=== PATIENT | female | born 1965 | race African-American/Black ===

== ENCOUNTER 2017-01-06 11:57 | Observation (INO) | payer OTHER ==
[2017-01-06] MEDS ORDERED: morphine CARPU-JECT 4 MG/1 ML DISP.SYRIN IVPUSH ONE ×2 (13:19→17:43)
[2017-01-06] MEDS ORDERED: ASPIRIN 81 MG CHEWABLE TABLETS PO ONE (13:21)
--- NOTE | 2017-01-06 13:23 | PDOC ---
History of Present Illness - General Chief Complaint: Chest Pain Stated Complaint: CHEST PAIN Time Seen by Provider: 01/06/17 12:18 History Source: Patient Exam Limitations: No Limitations - History of Present Illness Initial Comments: 01/06/17 13:52 Patient is a 51F with history of prior DVT and CHF complaining of chest pain. The pain is located just to the left of the sternum and has been going on for about a week. It's made worse by activity, palpation and inspiration. It's made better with rest. It's described as a sharp pain. It does not radiate anywhere. The pain is intermittent. She also states that she has a blood clot in her upper right leg for the past 4 weeks or so, but has not received any treatment for it. She also complains of shortness of breath and edema in her legs. She denies nausea, vomiting, fevers, and chills. She states that she thinks her CHF is due to cocaine and alcohol abuse. She also states she has not used for 8+ years Past History - Past Medical History Allergies/Adverse Reactions: Allergies Allergy/AdvReac Type Severity Reaction Status Date / Time Penicillins Allergy Unverified 01/06/17 14:47 HTN: Yes Other medical history: right leg dvt, morbid obesity, former drug abuser - Psycho/Social/Smoking Cessation Hx Anxiety: No Suicidal Ideation: No Smoking History: Never smoked Have you smoked in the past 12 months: No Information on smoking cessation initiated: No Hx Alcohol Use: No Drug/Substance Use Hx: No Substance Use Type: None Review of Systems - Review of Systems Constitutional: No: Chills, Fever, Weakness HEENTM: No: Blurred Vision Respiratory: Yes: Shortness of Breath Cardiac (ROS): Yes: Chest Pain, Edema ABD/GI: No: Nausea, Vomiting : No: Burning, Dysuria Musculoskeletal: Yes: Joint Pain, Muscle Pain Neurological: Yes: Headache. No: Weakness *Physical Exam - Vital Signs Last Vital Signs Temp Pulse Resp BP Pulse Ox 98.0 F 94 H 18 130/71 96 01/06/17 11:57 01/06/17 11:57 01/06/17 11:57 01/06/17 11:57 01/06/17 11:57 - Physical Exam Comments: 01/06/17 13:59 Gen: Obese, well nourished, no acute distress CV: RRR, no murmurs rubs or gallops Lungs: Normal work of breathing, clear to auscultation bilaterally Chest: Tender to palpation, equal and symmetric chest movement Abd: Soft, nontender, normal bowel sounds Ext: 1+ pulses in lower extremities, 2+ in upper extremities, trace edema bilaterally Neuro: Awake, alert, oriented, no focal neuro deficits, CN2-12 intact Heart Score/ECG Review - History History: Moderately suspicious - Electrocardiogram EKG: Non specific repolarization disturbance - Age Age: 45-65 - Risk Factors Risk Factors Heart Score: Yes Hx Hypercholesterolemia, Yes Hx Hypertension, Yes Hx Diabetes, Yes Smoking History, Yes Positive family hx of cardiac disease, Yes Hx Obesity Based on the list above the patient has:: >/=3 risk factors or Hx atherosclerotic disease - Troponin Troponin: </= normal limit - Score Heart Score - Total: 5 #1 ECG reviewed & interpreted by me at: 14:03 01/06/17 14:03 Sinus rhythm, normal rate, normal axis, no t-wave abnormalities. [id number] showing LVH ED Treatment Course - LABORATORY CBC & Chemistry Diagram: 01/06/17 13:50 01/06/17 13:50 - ADDITIONAL ORDERS Additional order review: Laboratory Results 01/06/17 01/06/17 13:50 13:50 INR 1.14 PTT (Actin FS) 36.2 H Sodium 139 Potassium 3.8 Chloride 97 L Carbon Dioxide 35 H Anion Gap 7 L BUN 13 Creatinine 0.8 Creat Clearance w eGFR > 60 Random Glucose 189 H Calcium 9.0 Phosphorus 2.8 Magnesium 2.0 Total Bilirubin 0.5 AST 13 L ALT 22 Alkaline Phosphatase 112 Creatine Kinase 99 Troponin I < 0.02 Total Protein 7.4 Albumin 3.6 01/06/17 13:50 RBC 4.77 MCV 83.8 MCHC 31.7 L RDW 16.2 H MPV 7.9 Neutrophils % 69.3 Lymphocytes % 22.5 Monocytes % 5.4 Eosinophils % 2.2 Basophils % 0.6 - RADIOLOGY Radiology Studies Ordered: Category Date Time Status CHEST CTA [CT] Stat CT Scan 01/06/17 14:46 Completed DUPLEX VASCUL US-1 LEG [US] Stat Ultrasound 01/06/17 13:51 Completed - Medications Given in the ED: ED Medications Discontinued Medications Generic Name Dose Route Start Last Admin Trade Name Freq PRN Reason Stop Dose Admin Aspirin 324 mg 01/06/17 13:21 01/06/17 14:47 Asa - PO 01/06/17 13:22 324 mg ONCE ONE Administration Morphine Sulfate 4 mg 01/06/17 13:19 01/06/17 14:47 Morphine Injection - IVPUSH 01/06/17 13:20 4 mg ONCE ONE Administration Medical Decision Making - Medical Decision Making 01/06/17 14:04 Patient is a 51F with history of DVT and CHF here today complaining of chest pain. Chest pain is atypical, but multiple risk factors and history of untreated DVT is concerning. Vital signs are normal and stable. Differential diagnosis includes, but is not limited to: ACS, unstable angina, CHF, PE. Labs, CXR, ECG, and CTA Chest ordered. 01/06/17 17:50 CXR shows no acute cardiopulmonary process. Lab work normal. DVT and CTA normal. Plan to admit for observation. 01/06/17 18:[address] Jennings to admit to tele obs. Cardiology brought on board via Dr Lino as well. *DC/Admit/Observation/Transfer Diagnosis at time of Disposition: Chest pain Qualifiers: Chest pain type: unspecified Qualified Code(s): R07.9 - Chest pain, unspecified - Discharge Dispostion Condition at time of disposition: Stable Admit: Yes Decision to Admit order Date/Time: Decision to Admit Order Category Date Time Status Decision to Admit to Hospital Routine Admission 01/06/17 18:18 Active - Transfer to Acute Care Facility Accepting Physician:: Michaela - Attestations Scribe Attestion: 01/06/17 18:18 I, Dr. Conner Jaimes, attest that this document has been prepared under my direction and personally reviewed by me in its entirety. I further attest, that it accurately reflects all work, treatment, procedures and medical decision -making performed by me.
--- NOTE | 2017-01-06 13:44 | PDOC ---
Attending Attestation - Resident Resident Name: Conner Jaimes - ED Attending Attestation I have performed the following: I have examined & evaluated the patient, The case was reviewed & discussed with the resident, I agree w/resident's findings & plan, Exceptions are as noted - HPI HPI: 01/06/17 14:05 51-year-old female with history of congestive heart failure, hypertension, hyperlipidemia presents to the emergency department for chest pain. The patient reports last several days of having midsternal chest sharp pain that is pleuritic and reproducible to palpation. Patient states that the pain is coming go. Has some shortness of breath with this. Patient was recently diagnosed with a right lower extremity DVT of unknown etiology but is not on anticoagulation. She is now complaining of chest pain. Denies fevers or chills. Denies nausea or vomiting. - Physicial Exam PE: 01/06/17 14:06 GENERAL: Awake, alert, and fully oriented, in no acute distress. HEAD: No signs of trauma EYES: PERRLA, EOMI, sclera anicteric, conjunctiva clear ENT: Auricles normal inspection, hearing grossly normal, nares patent, oropharynx clear without exudates. NECK: Normal ROM, supple, no lymphadenopathy, JVD, or masses LUNGS: Breath sounds equal, clear to auscultation bilaterally. No wheezes, and no crackles HEART: Regular rate and rhythm, normal S1 and S2, no murmurs, rubs or gallops. Reproducible midsternal chest pain ABDOMEN: Soft, nontender, normoactive bowel sounds. No guarding, no rebound. No masses EXTREMITIES: Normal range of motion, no edema. No clubbing or cyanosis. No cords, erythema, or tenderness NEUROLOGICAL: Cranial nerves II through XII grossly intact. Normal speech, normal gait SKIN: Warm, Dry, normal turgor, no rashes or lesions noted. - Medical Decision Making 01/06/17 14:07 Patient's pleuritic chest pain in the setting of history of DVT we'll need a workup for pulmonary embolism. She has history congestive heart failure hypertension, hyperlipidemia. The patient will need a rule out [place] workup despite having an atypical story. We'll need to perform troponins, chest x-ray and a CT chest angiogram. Consider admission to the hospital for further cardiac workup. <Sukh Smith - Last Filed: 01/06/17 14:05> - Medical Decision Making 01/06/17 18:12-- Dr. Sanchez paged via phone answering service. 01/06/17 18:15-- Dr. Lino hydrate control tender for Dr. Sanchez who responded the page and discussed the patient's case. <Christina Silverman - Last Filed: 01/06/17 18:18> Heart Score/ECG Review - History History: Moderately suspicious - Electrocardiogram EKG: Non specific repolarization disturbance - Age Age: 45-65 - Risk Factors Based on the list above the patient has:: >/=3 risk factors or Hx atherosclerotic disease #1 ECG reviewed & interpreted by me at: 12:20 01/06/17 13:44 NSR 91, LVH, no std/anitha, normal axis, normal intervals, left atrial enlargement , QTC 462 msec <Sukh Smith - Last Filed: 01/06/17 14:05>
[2017-01-06 14:07] LABS: BASOPHIL 0.6 % (0-2.0); EOSINOPHIL 2.2 % (0-4.5); MCH 26.5 pg (25.7-33.7); MCHC 31.7 g/dl (32.0-36.0); MEAN CELL VOLUME 83.8 fl (80-96); MEAN PLT VOLUME 7.9 fl (7.5-11.1); NEUTROPHILS 69.3 % (42.8-82.8); PLATELET COUNT 304 K/MM3 (134-434); RDW 16.2 % (11.6-15.6); WHITE BLOOD COUNT 9.4 K/mm3 (4.0-10.0)
[2017-01-06 14:22] LABS: ALBUMIN 3.6 g/dl (3.4-5.0); ANION GAP 7 (8-16); BILIRUBIN,TOTAL 0.5 mg/dL (0.2-1.0); CO2 35 mmol/L (21-32); CREATININE 0.8 mg/dL (0.55-1.02); GLUCOSE,RANDOM 189 mg/dL (74-106); PHOSPHOROUS 2.8 mg/dL (2.5-4.9); SGOT/AST 13 U/L (15-37); SGPT/ALT 22 U/L (12-78); TOT PROT 7.4 g/dl (6.4-8.2)
[2017-01-06 14:25] LABS: ALK PHOS 112 U/L (45-117); TROPONIN I < 0.02 ng/ml (0.00-0.05)
[2017-01-06 14:37] LABS: INR 1.14 (0.82-1.09); PROTHROMBIN TIME (PATIENT) 12.6 SEC (9.98-11.88)
[2017-01-06 14:39] LABS: ACTIVATED PTT 36.2 SECONDS (26.9-34.4)
[2017-01-06] MEDS ORDERED: morphine CARPU-JECT 4 MG/1 ML DISP.SYRIN ONE ×2 (14:41→18:24)
[2017-01-06] MEDS ORDERED: ASPIRIN 81 MG CHEWABLE TABLETS ONE (14:42)
[2017-01-06] MEDS ORDERED: ONDANSETRON 4 MG/2 ML VIAL IVPUSH ONE (17:44)
--- NOTE | 2017-01-06 20:33 | HP ---
Admitting History and Physical - Primary Care Physician PCP: Lucy Jennings - Admission Chief Complaint: chest pain History of Present Illness: 51-year-old female with history of congestive heart failure, hypertension, hyperlipidemia presents to the emergency department for chest pain. The patient reports last several days of having midsternal chest sharp pain that is pleuritic and reproducible to palpation. Patient states that the pain is coming go. Has some shortness of breath with this. Patient was recently diagnosed with a right lower extremity DVT of unknown etiology but is not on anticoagulation. She is now complaining of chest pain. will admit pt for work up and r/o pe and mi - Smoking History Smoking history: Never smoked Have you smoked in the past 12 months: No - Alcohol/Substance Use Hx Alcohol Use: No Home Medications - Allergies Allergies/Adverse Reactions: Allergies Allergy/AdvReac Type Severity Reaction Status Date / Time Penicillins Allergy Severe Itching, Verified 01/06/17 21:48 rash - Home Medications Home Medications: Ambulatory Orders Aspirin [ASA -] 81 mg PO DAILY 01/06/17 Carvedilol [Coreg -] 3.125 mg PO ONCE 01/06/17 Lisinopril [Prinivil] 20 mg PO DAILY 01/06/17 Simvastatin [Zocor -] 20 mg PO HS 01/06/17 Carvedilol [Coreg -] 6.25 mg PO BID tablet 01/07/17 Rivaroxaban [Xarelto -] 15 mg PO BID tablet 01/07/17 Physical Examination Vital Signs: Vital Signs Temperature 98.0 F 01/06/17 11:57 Pulse Rate 94 H 01/06/17 11:57 Respiratory Rate 18 01/06/17 11:57 Blood Pressure 130/71 01/06/17 11:57 O2 Sat by Pulse Oximetry (%) 96 01/06/17 11:57 Constitutional: Yes: No Distress HENT: Yes: Atraumatic Neck: Yes: Supple Cardiovascular: Yes: Regular Rate and Rhythm Respiratory: Yes: CTA Bilaterally Gastrointestinal: Yes: Normal Bowel Sounds Extremities: Yes: WNL Neurological: Yes: Alert, Oriented Imaging - Results Chest X-ray: Report Reviewed Cat Scan: Report Reviewed Problem List - Problems (1) Chest pain Assessment/Plan: tele admit serial cardiac enzymes cardiology fu Code(s): R07.9 - CHEST PAIN, UNSPECIFIED Qualifiers: Chest pain type: unspecified Qualified Code(s): R07.9 - Chest pain, unspecified (2) Diabetes mellitus Assessment/Plan: fu bgms Code(s): E11.9 - TYPE 2 DIABETES MELLITUS WITHOUT COMPLICATIONS Qualifiers: Diabetes mellitus type: type 2 Diabetes mellitus complication status: without complication (3) HTN (hypertension) Assessment/Plan: on meds stable Code(s): I10 - ESSENTIAL (PRIMARY) HYPERTENSION Qualifiers: Hypertension type: essential hypertension Qualified Code(s): I10 - Essential (primary) hypertension Assessment/Plan Laboratory Tests 01/06/17 01/06/17 01/06/17 13:50 13:50 13:50 WBC 9.4 RBC 4.77 Hgb 12.7 Hct 40.0 MCV 83.8 MCH 26.5 MCHC 31.7 L RDW 16.2 H Plt Count 304 MPV 7.9 Neutrophils % 69.3 Lymphocytes % 22.5 Monocytes % 5.4 Eosinophils % 2.2 Basophils % 0.6 INR 1.14 PTT (Actin FS) 36.2 H Sodium 139 Potassium 3.8 Chloride 97 L Carbon Dioxide 35 H Anion Gap 7 L BUN 13 Creatinine 0.8 Creat Clearance w eGFR > 60 Random Glucose 189 H Calcium 9.0 Phosphorus 2.8 Magnesium 2.0 Total Bilirubin 0.5 AST 13 L ALT 22 Alkaline Phosphatase 112 Creatine Kinase 99 Troponin I < 0.02 Total Protein 7.[address] angio scan...no pe doppler romi.no dvt
[2017-01-06] MEDS ORDERED: ACETAMINOPHEN 325 MG TABLET (FP) PO PRN (20:35)
[2017-01-06] MEDS ORDERED: ATORVASTATIN CA 20 MG TABLET (FP) PO SCH (22:00)
[2017-01-06] MEDS ORDERED: oxyCODONE HCL 5 MG TABLET PO PRN (22:13)
[2017-01-06 22:31] LABS: TROPONIN I < 0.02 ng/ml (0.00-0.05)
[2017-01-06 23:03] VITALS: BMI 47.7
[2017-01-07] MEDS: oxyCODONE HCL 5 MG TABLET PO PRN ×4 (01:55→15:57)
[2017-01-07 08:15] LABS: TROPONIN I < 0.02 ng/ml (0.00-0.05)
[2017-01-07] MEDS ORDERED: ASPIRIN 81 MG CHEWABLE TABLETS PO SCH (10:00)
[2017-01-07] MEDS ORDERED: LISINOPRIL 20 MG TABLET (FP) PO SCH (10:00)
--- NOTE | 2017-01-07 12:04 | CON.CARD ---
Consult Consult Specialty:: Cardiology Referred by:: Dr. Jennings Reason for Consultation:: Cardiac evaluation - History of Present Illness Chief Complaint: Chest pain History of Present Illness: Patient is a 51 year old female with history of hypertension, hypercholesterolemia, right lower extremity DVT diagnosed in June at [facility] and was on Coumadin for 3 months (she ran out of meds and stopped herself), in addition, patient had a cardiac catheterization at [facility] in March of last year after having an abnormal stress testing. It appears that she was diagnosed with nonischemic dilated cardiomyopathy and was placed on LifeVest. She had LifeVest on until September and then it was sent back, but she did not follow up for ICD implant. She was seen at [facility] numerous times for right leg pain. She was seen by Dr. Jim Ramirez ([facility] firearms instructor) last week. Currently she is admitted with mid sternal chest discomfort without radiation. She denies shortness of breath or palpitations. She denies paroxysmal nocturnal dyspnea or orthopnea. She denies fever or chills. She denies headache or lightheadedness. She complains of right upper thigh pain. Vascular ultrasound revealed no evidence of DVT and chest CTA revealed no evidence of pulmonary embolism. Cardiology consultation was called for further evaluation. - History Source History Provided By: Patient, Medical Record Limitations to Obtaining History: No Limitations - Past Medical History Cardio/Vascular: Yes: CHF, HTN, Hyperlipdemia, Other (Dilated cardiomyopathy) - Past Surgical History Past Surgical History: Yes: Hysterectomy - Alcohol/Substance Use Hx Alcohol Use: Yes (previously) History of Substance Use: reports: Cocaine - Smoking History Smoking history: Former smoker Have you smoked in the past 12 months: No Home Medications - Allergies Allergies/Adverse Reactions: Allergies Allergy/AdvReac Type Severity Reaction Status Date / Time Penicillins Allergy Severe Itching, Verified 01/06/17 21:48 rash - Home Medications Home Medications: Ambulatory Orders Aspirin [ASA -] 81 mg PO DAILY 01/06/17 Carvedilol [Coreg -] 3.125 mg PO ONCE 01/06/17 Lisinopril [Prinivil] 20 mg PO DAILY 01/06/17 Simvastatin [Zocor -] 20 mg PO HS 01/06/17 Family Disease History - Family Disease History Family Disease History: CA: Father (HTN, prostate CA), Other: Father, Mother ( HTN) Review of Systems - Review of Systems Constitutional: denies: Chills, Fever Cardiovascular: reports: Chest Pain. denies: Palpitations, Shortness of Breath Respiratory: denies: Cough, Hemoptysis, Orthopnea, PND, SOB, SOB on Exertion Gastrointestinal: denies: Abdominal Pain, Constipation, Diarrhea, Melena, Nausea , Rectal Bleeding, Vomiting Musculoskeletal: reports: Extremity Pain Neurological: denies: Dizziness, Headache, Seizure, Syncope, Unsteady Gait, Weakness Vital Signs: Vital Signs Temperature 97.8 F 01/07/17 07:17 Pulse Rate 89 01/07/17 07:17 Respiratory Rate 18 01/07/17 07:17 Blood Pressure 127/74 01/07/17 07:17 O2 Sat by Pulse Oximetry (%) 97 01/06/17 21:15 Neck: Yes: Supple Respiratory: Yes: Diminished Gastrointestinal: Yes: Normal Bowel Sounds, Soft, Abdomen, Obese. No: Tenderness Cardiovascular: Yes: Regular Rate and Rhythm JVD: No Carotid Bruit: No PMI: Non-Displaced Heart Sounds: Yes: S1, S2. No: Gallop Murmur: No: Systolic Murmur Edema: No - Other Data Labs, Other Data: INR, PTT INR 1.14 (0.82-1.09) 01/06/17 13:50 Troponin, BNP 01/06/17 01/07/17 21:30 05:35 Troponin I < 0.02 < 0.02 Laboratory Results - last 24 hr 01/06/17 01/06/17 01/06/17 13:50 13:50 13:50 WBC 9.4 RBC 4.77 Hgb 12.7 Hct 40.0 MCV 83.8 MCH 26.5 MCHC 31.7 L RDW 16.2 H Plt Count 304 MPV 7.9 Neutrophils % 69.3 Lymphocytes % 22.5 Monocytes % 5.4 Eosinophils % 2.2 Basophils % 0.6 INR 1.14 PTT (Actin FS) 36.2 H Sodium 139 Potassium 3.8 Chloride 97 L Carbon Dioxide 35 H Anion Gap 7 L BUN 13 Creatinine 0.8 Creat Clearance w eGFR > 60 Random Glucose 189 H Calcium 9.0 Phosphorus 2.8 Magnesium 2.0 Total Bilirubin 0.5 AST 13 L ALT 22 Alkaline Phosphatase 112 Creatine Kinase 99 Troponin I < 0.02 Total Protein 7.4 Albumin 3.6 01/06/17 01/07/17 21:30 05:35 WBC RBC Hgb Hct MCV MCH MCHC RDW Plt Count MPV Neutrophils % Lymphocytes % Monocytes % Eosinophils % Basophils % INR PTT (Actin FS) Sodium Potassium Chloride Carbon Dioxide Anion Gap BUN Creatinine Creat Clearance w eGFR Random Glucose Calcium Phosphorus Magnesium Total Bilirubin AST ALT Alkaline Phosphatase Creatine Kinase 85 83 Troponin I < 0.02 < 0.02 Total Protein Albumin Normal sinus rhythm with LVH Echo: Pending Imaging - Results Chest X-ray: Report Reviewed Cat Scan: Report Reviewed (Chest CTA no pulmonary embolism) Ultrasound: Report Reviewed (No DVT) EKG: Report Reviewed Problem List - Problems (1) Chest pain Code(s): R07.9 - CHEST PAIN, UNSPECIFIED Qualifiers: Chest pain type: unspecified Qualified Code(s): R07.9 - Chest pain, unspecified (2) Nonischemic dilated cardiomyopathy Code(s): I42.9 - CARDIOMYOPATHY, UNSPECIFIED (3) HTN (hypertension) Code(s): I10 - ESSENTIAL (PRIMARY) HYPERTENSION Qualifiers: Hypertension type: essential hypertension Qualified Code(s): I10 - Essential (primary) hypertension (4) Hypercholesterolemia Code(s): E78.00 - PURE HYPERCHOLESTEROLEMIA, UNSPECIFIED (5) DVT (deep venous thrombosis) Code(s): I82.409 - ACUTE EMBOLISM AND THOMBOS UNSP DEEP VN UNSP LOWER EXTREMITY Qualifiers: DVT location: lower extremity Laterality: right (6) Hyperglycemia Code(s): R73.9 - HYPERGLYCEMIA, UNSPECIFIED Assessment/Plan 1. Chest pain syndrome with probable underlying non-ischemic dilated cardiomyopathy (previously was placed on LifeVest with assessment for ICD implant as primary prophylaxis) 2. Hypertension/hypertensive cardiovascular disease 3. Hypercholesterolemia 4. Previous history of substance abuse 5. Hyperglycemia suggests diabetes mellitus 6. History of right LE DVT 7. Exogenous obesity PLAN: 1. Serial cardiac enzymes are negative 2. Continue Carvedilol and Lisinopril and uptitrate 3. Continue ASA 4. Continue Statin and follow lipid panel 5. Consider Spironolactone if clinically feasible 6. Obtain cardiac catheterization report for review 7. Transthoracic echocardiography to assess LV and valvular function if not done recently (will check with Dr. Ramirez) 8. Further nuclear imaging to assess LVEF and if LVEF is less than 35%, she may need ICD for primary prophylaxis. 9. Check hemoglobin A1C and TSH 10. Obtain right LE ultrasound report from [facility] for review Further plans are to follow Gustavo Lino MD
[2017-01-07] MEDS ORDERED: CARVEDILOL 6.25 MG TABLET (FP) PO SCH (12:30)
[2017-01-07] MEDS ORDERED: RIVAROXABAN 15 MG TABLET PO SCH (12:45)
--- NOTE | 2017-01-07 16:08 | DS ---
Physical Examination Vital Signs: Vital Signs Temperature 97.8 F 01/07/17 14:00 Pulse Rate 96 H 01/07/17 14:00 Respiratory Rate 20 01/07/17 15:00 Blood Pressure 112/71 01/07/17 14:00 O2 Sat by Pulse Oximetry (%) 97 01/06/17 21:15 Constitutional: Yes: No Distress HENT: Yes: Atraumatic Neck: Yes: Supple Cardiovascular: Yes: Regular Rate and Rhythm Respiratory: Yes: CTA Bilaterally Gastrointestinal: Yes: Normal Bowel Sounds Extremities: Yes: WNL Edema: No Peripheral Pulses WNL: Yes Neurological: Yes: Alert, Oriented Discharge Summary Reason For Visit: CHEST PAIN Current Active Problems Chest pain (Acute) DVT (deep venous thrombosis) (Acute) Diabetes mellitus (Acute) HTN (hypertension) (Acute) Hypercholesterolemia (Acute) Hyperglycemia (Acute) Nonischemic dilated cardiomyopathy (Acute) Condition: Stable - Instructions Diet, Activity, Other Instructions: pt need to see her cardiology and pmd for xeralto and other prescriptions apparently she was on it at home ...see your doctor as soon as possible Referrals: Gustavo Lino MD [Staff Physician] - - Home Medications Comprehensive Discharge Medication List: Ambulatory Orders Aspirin [ASA -] 81 mg PO DAILY 01/06/17 Carvedilol [Coreg -] 3.125 mg PO ONCE 01/06/17 Lisinopril [Prinivil] 20 mg PO DAILY 01/06/17 Simvastatin [Zocor -] 20 mg PO HS 01/06/17 xeralto at home 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
[2017-01-07 19:23] VITALS: BP 107/53; PULSE 87; TEMP 98.8
--- NOTE | 2017-01-08 13:03 | EKG ---
Test Reason : Blood Pressure : / mmHG Vent. Rate : 091 BPM Atrial Rate : 091 BPM P-R Int : 160 ms QRS Dur : 086 ms QT Int : 376 ms P-R-T Axes : 054 -05 034 degrees QTc Int : 462 ms NORMAL SINUS RHYTHM POSSIBLE LEFT ATRIAL ENLARGEMENT LEFT VENTRICULAR HYPERTROPHY ABNORMAL ECG NO PREVIOUS ECGS AVAILABLE Confirmed by ANGELA LUGO MD ([id number]) on 01/08/2017 1:02:44 PM Referred By: Confirmed By:ANGELA LUGO MD
== END 2017-01-07 20:13 | disposition home or self-care (01) ==
LOC: JER 11:57 → JERBED 18:18 → J4W 19:35
PROVIDERS: ADMIT Internal Medicine; ATTEND Internal Medicine
PROC: 3E033NZ Introduction of Analgesics, Hypnotics, Sedatives into Peripheral Vein, Percutaneous Approach (ICD-10-PCS; principal; 2017-01-06)
PROC: 3E033GC Introduction of Other Therapeutic Substance into Peripheral Vein, Percutaneous Approach (ICD-10-PCS; 2017-01-06)
DX: R07.9 Chest pain, unspecified (principal); I10 Essential (primary) hypertension; I50.9 Heart failure, unspecified; I42.8 Other cardiomyopathies; I82.4Z1 Acute embolism and thrombosis of unspecified deep veins of right distal lower extremity; E11.65 Type 2 diabetes mellitus with hyperglycemia; E78.5 Hyperlipidemia, unspecified; E66.01 Morbid (severe) obesity due to excess calories; Z68.42 Body mass index [BMI] 45.0-49.9, adult; G47.33 Obstructive sleep apnea (adult) (pediatric); Z88.0 Allergy status to penicillin; Z87.891 Personal history of nicotine dependence; F19.21 Other psychoactive substance dependence, in remission; Z79.82 Long term (current) use of aspirin; Z79.01 Long term (current) use of anticoagulants
CPT/HCPCS: 36415; 71010-TC; 71275-TC; 80053; 82550; 83735; 84100; 84484; 85025; 85610; 85730; 93005; 93010; 93971-TC; 99285-25; G0378

== ENCOUNTER 2017-09-24 11:44 | Emergency (ER) | payer OTHER ==
[2017-09-24 12:48] VITALS: BMI 49.9
--- NOTE | 2017-09-24 13:00 | PDOC ---
History of Present Illness - General Chief Complaint: Pain, Acute Stated Complaint: FOOT PAIN Time Seen by Provider: 09/24/17 12:49 History Source: Patient Exam Limitations: No Limitations - History of Present Illness Initial Comments: 09/24/17 14:33 Pt. is a 52 y/o F with PMH of DVT currently on xaralto, CHF, who presents to the ED c/o increasing L lower leg pain and shortness of breath on exertion. Pt. states that the pain has been getting worse in her leg and that she has a DVT in her LLE. She took Motrin with little relief. Pt. also states that she gets short of breath with exertion and is unable to walk more than a couple of yards without getting short of breath. Denies fevers, chills, n/v/d, chest pain, palpitations, difficulty breathing at rest, leg numbness and weakness. Past History - Travel Traveled outside of the country in the last 30 days: No Close contact w/someone who was outside of country & ill: No - Past Medical History Allergies/Adverse Reactions: Allergies Allergy/AdvReac Type Severity Reaction Status Date / Time Penicillins Allergy Severe Itching, Verified 09/24/17 12:48 rash Home Medications: Ambulatory Orders Aspirin [ASA -] 81 mg PO DAILY 01/06/17 Carvedilol [Coreg -] 3.125 mg PO ONCE 01/06/17 Lisinopril [Prinivil] 20 mg PO DAILY 01/06/17 Simvastatin [Zocor -] 20 mg PO HS 01/06/17 Rivaroxaban [Xarelto -] 15 mg PO BID tablet 01/07/17 COPD: No DVT: Yes (2013) Diabetes: No HTN: Yes Hypercholesterolemia: Yes - Suicide/Smoking/Psychosocial Hx Smoking History: Never smoked Have you smoked in the past 12 months: No Information on smoking cessation initiated: No Hx Alcohol Use: No Drug/Substance Use Hx: No Substance Use Type: None Review of Systems - Review of Systems Able to Perform ROS?: Yes Comments:: 09/24/17 14:47 CONSTITUTIONAL: Absent: fever, chills, diaphoresis, generalized weakness, malaise, loss of appetite HEENT: Absent: rhinorrhea, nasal congestion, throat pain, throat swelling, difficulty swallowing, mouth swelling, ear pain, eye pain, visual Changes CARDIOVASCULAR: Absent: chest pain, loss of consciousness, palpitations, irregular heart rate, peripheral edema RESPIRATORY: Present: dyspnea with exertion Absent: cough, shortness of breath, orthopnea, wheezing, stridor, hemoptysis GASTROINTESTINAL: Absent: abdominal pain, abdominal distension, nausea, vomiting, diarrhea, constipation, melena, hematochezia GENITOURINARY: Absent: dysuria, frequency, urgency, hesitancy, hematuria, flank pain, genital pain MUSCULOSKELETAL: Present: LLE pain Absent: myalgia, arthralgia, joint swelling SKIN: Absent: rash, itching, pallor HEMATOLOGIC/IMMUNOLOGIC: Present: Prior DVT's Absent: easy bleeding, easy bruising, lymphadenopathy, frequent infections ENDOCRINE: Absent: unexplained weight gain, unexplained weight loss, heat intolerance, cold intolerance NEUROLOGIC: Absent: headache, focal weakness or paresthesias, dizziness, unsteady gait, seizure, mental status changes, bladder or bowel incontinence PSYCHIATRIC: Absent: anxiety, depression, suicidal or homicidal ideation, hallucinations. Is the patient limited Montserratian proficient: No *Physical Exam - Vital Signs Last Vital Signs Temp Pulse Resp BP Pulse Ox 97.6 F 72 16 130/67 100 09/24/17 11:44 09/24/17 11:44 09/24/17 11:44 09/24/17 11:44 09/24/17 11:44 - Physical Exam Comments: 09/24/17 14:52 GENERAL: Well developed, well nourished. Awake and alert. No acute distress. HEENT: Normocephalic, atraumatic. PERRLA, EOMI. No conjunctival pallor. Sclera are non- icteric. Moist mucous membranes. Oropharynx is clear. NECK: Supple. Full ROM. No JVD. Carotid pulses 2+ and symmetric, without bruits. No thyromegaly. No lymphadenopathy. CARDIOVASCULAR: Regular rate and rhythm. No murmurs, rubs, or gallops. Distal pulses are 2+ and symmetric. PULMONARY: No evidence of respiratory distress. Lungs clear to auscultation bilaterally. No wheezing, rales or rhonchi. ABDOMINAL: Soft. Non-tender. Non-distended. No rebound or guarding. No organomegaly. Normoactive bowel sounds. MUSCULOSKELETAL Normal range of motion at all joints. No bony deformities or tenderness. No CVA tenderness. EXTREMITIES: LLE swelling, with positive TTP of the L calf with (+) nita's sign. RLE also swollen with 1+ edema. No cyanosis. No clubbing. SKIN: Warm and dry. Normal capillary refill. No rashes. No jaundice. NEUROLOGICAL: Alert, awake, appropriate. Cranial nerves 2-12 intact. No deficits to light touch and temperature in face, upper extremities and lower extremities. No motor deficits in the in face, upper extremities and lower extremities. Normoreflexic in the upper and lower extremities. Normal speech. Toes are down- going bilaterally. Gait is normal without ataxia. PSYCHIATRIC: Cooperative. Good eye contact. Appropriate mood and affect. ED Treatment Course - LABORATORY CBC & Chemistry Diagram: 09/24/17 13:50 09/24/17 13:50 Medical Decision Making - Medical Decision Making 09/24/17 14:55 Pt. is a 52 y/o F with PMH of DVT of LLE , CHF, who presents to the ED with LLE pain, and SOB. Physical exam shows positive homans sign with calf tenderness, concerning for DVT. Pt also with shortness of breath; Wells' criteria for PE is moderate risk. Will have to r/o PE a this time as well. Vital signs are currently stable. Plan as follows 1. Labs 2. US legs b/l 3. Chest CTA 4. Percocet 5. CXR, EKG 6. Re-evaluate 09/24/17 17:23 BNP is normal at 10. CBC WNL. CXR shows mild congestion and cardiomegaly. Pt. reports minor relief of her pain with the percocet. US of LLE: Non-obstructing DVT of the L deep femoral vein US of RLE: No DVT found 09/24/17 18:01 Chest CTA negative for PE, no pulmonary congestion. Given no PE, possible causes of shortness of breath include possible angina vs CHF (less likely). Troponin added to labs 09/24/17 19:00 Sign out given to Theresa Prieto NP. Pt. pending troponin and re-evaluation of her shortness of breath and pain.
[2017-09-24 14:06] LABS: HEMATOCRIT 39.9 % (32.4-45.2); HEMOGLOBIN 12.7 GM/dL (10.7-15.3); LYMPH % 25.4 % (8-40); MCH 27.3 pg (25.7-33.7); MCHC 31.8 g/dl (32.0-36.0); MEAN CELL VOLUME 85.9 fl (80-96); MONO % 5.4 % (3.8-10.2); NEUT % 66.2 % (42.8-82.8); PLATELET COUNT 362 K/MM3 (134-434); RBC 4.64 M/mm3 (3.60-5.2); RDW 15.7 % (11.6-15.6); WHITE BLOOD COUNT 8.7 K/mm3 (4.0-10.0)
[2017-09-24 14:13] LABS: INR 1.1 (0.82-1.09); PROTHROMBIN TIME (PATIENT) 12.4 SEC (9.98-11.88)
--- NOTE | 2017-09-24 14:14 | EKG ---
Test Reason : Blood Pressure : / mmHG Vent. Rate : 074 BPM Atrial Rate : 074 BPM P-R Int : 180 ms QRS Dur : 088 ms QT Int : 442 ms P-R-T Axes : 062 012 027 degrees QTc Int : 490 ms NORMAL SINUS RHYTHM MINIMAL VOLTAGE CRITERIA FOR LVH, MAY BE NORMAL VARIANT CANNOT RULE OUT ANTERIOR INFARCT , AGE UNDETERMINED ABNORMAL ECG WHEN COMPARED WITH ECG OF 06-JAN-2017 12:17, NO SIGNIFICANT CHANGE WAS FOUND Confirmed by ANGELA LUGO MD ([id number]) on 09/24/2017 2:14:19 PM Referred By: Confirmed By:ANGELA LUGO MD
[2017-09-24 14:28] LABS: ALBUMIN 3.8 g/dl (3.4-5.0); ANION GAP 8 (8-16); BILIRUBIN,TOTAL 1.1 mg/dL (0.2-1.0); BLOOD UREA NITROGEN 11 mg/dL (7-18); CALCIUM 8.8 mg/dL (8.5-10.1); CHLORIDE 100 mmol/L (98-107); CO2 33 mmol/L (21-32); CREATININE 0.7 mg/dL (0.55-1.02); GLUCOSE,RANDOM 108 mg/dL (74-106); SGPT/ALT 23 U/L (12-78); SODIUM 141 mmol/L (136-145); TOT PROT 7.8 g/dl (6.4-8.2)
[2017-09-24 14:31] LABS: ALK PHOS 103 U/L (45-117)
[2017-09-24 14:34] LABS: POTASSIUM 3.8 mmol/L (3.5-5.1); SGOT/AST 23 U/L (15-37)
--- NOTE | 2017-09-24 15:49 | PDOC ---
*Physical Exam - Vital Signs Last Vital Signs Temp Pulse Resp BP Pulse Ox 97.6 F 72 16 130/67 100 09/24/17 11:44 09/24/17 11:44 09/24/17 11:44 09/24/17 11:44 09/24/17 11:44 - Physical Exam Comments: 09/24/17 15:48 The patient was examined by [AVANI Iverson] under my direct supervision. I personally evaluated the patient. I concur with the above findings and the plan of care. ED Treatment Course - LABORATORY CBC & Chemistry Diagram: 09/24/17 13:50 09/24/17 13:50 - ADDITIONAL ORDERS Additional order review: Laboratory Results 09/24/17 09/24/17 13:50 13:50 PT with INR 12.40 H INR 1.10 Sodium 141 Potassium 3.8 Chloride 100 Carbon Dioxide 33 H Anion Gap 8 BUN 11 Creatinine 0.7 Creat Clearance w eGFR > 60 Random Glucose 108 H Calcium 8.8 Total Bilirubin 1.1 H D AST 23 ALT 23 Alkaline Phosphatase 103 B-Natriuretic Peptide 10.80 Total Protein 7.8 Albumin 3.8 09/24/17 13:50 RBC 4.64 MCV 85.9 MCHC 31.8 L RDW 15.7 H MPV 8.0 Neutrophils % 66.2 Lymphocytes % 25.4 Monocytes % 5.4 Eosinophils % 2.0 Basophils % 1.0 - Medications Given in the ED: ED Medications Discontinued Medications Generic Name Dose Route Start Last Admin Trade Name Freq PRN Reason Stop Dose Admin Oxycodone/Acetaminophen 1 combo 09/24/17 13:57 09/24/17 14:07 Percocet 5/325 - PO 09/24/17 13:58 1 combo ONCE ONE Administration
--- NOTE | 2017-09-24 19:35 | PDOC ---
*Physical Exam - Vital Signs Last Vital Signs Temp Pulse Resp BP Pulse Ox 97.6 F 72 16 130/67 100 09/24/17 11:44 09/24/17 11:44 09/24/17 11:44 09/24/17 11:44 09/24/17 11:44 - Physical Exam General Appearance: Yes: Appropriately Dressed Respiratory/Chest: positive: Normal Breath Sounds Heart Score/ECG Review - History History: Slightly suspicious - Electrocardiogram EKG: Normal - Age Age: 45-65 - Risk Factors Risk Factors Heart Score: Yes Hx Hypercholesterolemia, Yes Hx Hypertension, Yes Hx Obesity Based on the list above the patient has:: >/=3 risk factors or Hx atherosclerotic disease - Troponin Troponin: </= normal limit - Score Heart Score - Total: 3 - ECG Intrepretation Rhythm: Regular Rhythm Comment:: 09/24/17 23:19 NSR: 74 bpm ED Treatment Course - LABORATORY CBC & Chemistry Diagram: 09/24/17 13:50 09/24/17 13:50 - ADDITIONAL ORDERS Additional order review: Laboratory Results 09/24/17 09/24/17 13:50 13:50 PT with INR 12.40 H INR 1.10 Sodium 141 Potassium 3.8 Chloride 100 Carbon Dioxide 33 H Anion Gap 8 BUN 11 Creatinine 0.7 Creat Clearance w eGFR > 60 Random Glucose 108 H Calcium 8.8 Total Bilirubin 1.1 H D AST 23 ALT 23 Alkaline Phosphatase 103 B-Natriuretic Peptide 10.80 Total Protein 7.8 Albumin 3.8 09/24/17 13:50 RBC 4.64 MCV 85.9 MCHC 31.8 L RDW 15.7 H MPV 8.0 Neutrophils % 66.2 Lymphocytes % 25.4 Monocytes % 5.4 Eosinophils % 2.0 Basophils % 1.0 - Medications Given in the ED: ED Medications Discontinued Medications Generic Name Dose Route Start Last Admin Trade Name Freq PRN Reason Stop Dose Admin Oxycodone/Acetaminophen 1 combo 09/24/17 13:57 09/24/17 14:07 Percocet 5/325 - PO 09/24/17 13:58 1 combo ONCE ONE Administration Oxycodone/Acetaminophen 1 combo 09/24/17 16:32 09/24/17 16:42 Percocet 5/325 - PO 09/24/17 16:33 1 combo ONCE ONE Administration *DC/Admit/Observation/Transfer Diagnosis at time of Disposition: DVT (deep venous thrombosis) Qualifiers: DVT location: lower extremity Affected thrombotic vein of extremity: unspecified vein of extremity Chronicity: chronic Laterality: left Qualified Code(s): I82.502 - Chronic embolism and thrombosis of unspecified deep veins of left lower extremity - Discharge Dispostion Disposition: HOME - Prescriptions Prescriptions: Oxycodone HCl/Acetaminophen [Percocet 5-325 mg Tablet] 1 tab PO Q6H PRN #10 tablet MDD 4 PRN Reason: Pain - Referrals Referrals: Marzena Bhakta MD [Staff Physician] - Call tomorrow - Patient Instructions Printed Discharge Instructions: DI for Leg Pain Additional Instructions: follow up with your doctor as soon as possible. return to the ER if symptoms worsen. - Post Discharge Activity Forms/Work/School Notes: Back to Work
[2017-09-24] MEDS ORDERED: ALBUTEROL SO4 2.5/IPRATROPIUM 0.5 INH SOL 3 ML VIAL.NEB. NEB ONE ×2 (19:37→22:15)
[2017-09-24] MEDS ORDERED: FUROSEMIDE 40 MG/4 ML INJECTABLE VIAL IVPUSH ONE (19:38)
[2017-09-24] MEDS ORDERED: morphine CARPU-JECT 2 MG/1 ML DISP.SYRIN IVPUSH ONE (20:19)
[2017-09-24] MEDS ORDERED: FUROSEMIDE 40 MG/4 ML INJECTABLE VIAL ONE (22:15)
[2017-09-24] MEDS ORDERED: morphine SULFATE 4 MG/ML VIAL ONE (22:16)
[2017-09-24 23:43] VITALS: BP 128/78; PULSE 78; TEMP 98.3
== END 2017-09-24 23:43 | disposition home or self-care (01) ==
LOC: JER 11:44
PROC: 3E0F7GC Introduction of Other Therapeutic Substance into Respiratory Tract, Via Natural or Artificial Opening (ICD-10-PCS; principal; 2017-09-24)
PROC: 3E033GC Introduction of Other Therapeutic Substance into Peripheral Vein, Percutaneous Approach (ICD-10-PCS; 2017-09-24)
PROC: 3E033NZ Introduction of Analgesics, Hypnotics, Sedatives into Peripheral Vein, Percutaneous Approach (ICD-10-PCS; 2017-09-24)
DX: I82.502 Chronic embolism and thrombosis of unspecified deep veins of left lower extremity (principal); I50.9 Heart failure, unspecified; Z79.01 Long term (current) use of anticoagulants; I10 Essential (primary) hypertension; E78.00 Pure hypercholesterolemia, unspecified
CPT/HCPCS: 36415; 71045-TC-FY; 71275-TC; 80053; 82550; 83880; 84484; 85025; 85610; 93005; 93010; 93970-TC; 94640; 96374; 96375; 99282-25

== ENCOUNTER 2018-07-13 12:09 | Observation (INO) | payer OTHER ==
--- NOTE | 2018-07-13 12:34 | PDOC ---
History of Present Illness - General Chief Complaint: Chest Pain Stated Complaint: CHEST PAIN - History of Present Illness Initial Comments: The patient is a 52F w/ a history of CAD s/p stent x2, CHF, stroke (2010 w/ RU/ LE weakness), T2DM, BLE DVT (not on AC) who presents for evaluation several days of R knee pain s/p mechanical fall from standing as well as 1d of L breast/ chest pain. She describes the chest pain as worse with sitting/leaning forward, worse w/ palpation, better w/ recumbency. Denies recent fever/chills, abdominal pain, N/V/C/D, dysuria, hematuria. 07/13/18 12:53 Past History - Past Medical History Allergies/Adverse Reactions: Allergies Allergy/AdvReac Type Severity Reaction Status Date / Time Penicillins Allergy Severe Itching, Verified 07/13/18 13:22 rash Home Medications: Ambulatory Orders Aspirin [ASA -] 81 mg PO DAILY 01/06/17 Lisinopril [Prinivil] 20 mg PO DAILY 01/06/17 COPD: No DVT: Yes (2013) Diabetes: No HTN: Yes Hypercholesterolemia: Yes - Suicide/Smoking/Psychosocial Hx Smoking History: Never smoked Have you smoked in the past 12 months: No Hx Alcohol Use: No Drug/Substance Use Hx: No Substance Use Type: None Review of Systems - Review of Systems Able to Perform ROS?: Yes Comments:: GENERAL/CONSTITUTIONAL: No fever or chills HEAD, EYES, EARS, NOSE AND THROAT: No change in vision. No ear pain or discharge. No sore throat CARDIOVASCULAR: +L chest pain and baseline SOB RESPIRATORY: Denies cough, hemoptysis GASTROINTESTINAL: No nausea, vomiting, diarrhea or constipation GENITOURINARY: No dysuria, frequency, or change in urination MUSCULOSKELETAL: +R knee pain SKIN: No rash NEUROLOGIC: No vertigo, loss of consciousness, or acute change in strength/ sensation ENDOCRINE: No increased thirst. No abnormal weight change HEMATOLOGIC/LYMPHATIC: No anemia, easy bleeding, or history of blood clots ALLERGIC/IMMUNOLOGIC: No hives or skin allergy 07/13/18 12:32 Is the patient limited Khmer proficient: No *Physical Exam - Vital Signs 07/13/18 13:10 Vital Signs Temp Pulse Resp BP Pulse Ox 97.6 F 67 17 122/64 95 07/13/18 12:33 07/13/18 12:33 07/13/18 12:33 07/13/18 12:33 07/13/18 12:33 - Physical Exam Comments: GENERAL: Awake, alert, and fully oriented, in no acute distress HEAD: No signs of trauma, normocephalic, atraumatic EYES: PERRLA, EOMI, sclera anicteric, conjunctiva clear ENT: Hearing grossly normal, nares patent, oropharynx clear without exudates. Moist mucosa LUNGS: No distress, speaks full sentences, mild rhonchi diffusely b/l HEART: Regular rate and rhythm, normal S1 and S2, no murmurs appreciated, peripheral pulses normal and equal bilaterally ABDOMEN: Soft, nontender, normoactive bowel sounds. No guarding, no rebound EXTREMITIES : BLE edema 1+, R knee TTP w/o evident effusion; LLE w/ full ROM, no TTP NEUROLOGICAL: Cranial nerves II through XII grossly intact. Normal speech; LLE medial reduced sensation to light touch, deep/pressure sensation intact; RUE/ RLE 4/5 strength (reported as chronic since stroke) SKIN: Warm, Dry 07/13/18 12:33 ED Treatment Course - LABORATORY CBC & Chemistry Diagram: 07/13/18 13:15 07/13/18 13:15 Medical Decision Making - Medical Decision Making The patient is a 52F w/ a history of CAD s/p stent x2, CHF, HTN, T2DM, BLE blood clot not on AC who presents for evaluation of L non-radiating chest pressure and R knee pain ddx: r/o acs, PNA, CHF exacerbation, consider PNX, PE ED Course CMP, CBC, Cardiac enzymes CXR, ECG 07/13/18 13:02 No leukocytosis No anemia Initial Trop I neg No NIKKI LFTs wnl 07/13/18 15:20 Tylenol, lidoderm patch, morphine for pain Plan for admission for ACS r/o Plan discussed w/ patient who is in agreement and verbalized understanding Dispo: admit 07/13/18 17:16 *DC/Admit/Observation/Transfer Diagnosis at time of Disposition: Chest pain Qualifiers: Chest pain type: unspecified Qualified Code(s): R07.9 - Chest pain, unspecified HTN (hypertension) Qualifiers: Hypertension type: unspecified Qualified Code(s): I10 - Essential (primary) hypertension Diabetes mellitus Qualifiers: Diabetes mellitus type: other specified (including NANCY) Diabetes mellitus usp insulin use: unspecified roasterman insulin use status Diabetes mellitus complication status: with unspecified complications Qualified Code(s): E13.8 - Other specified diabetes mellitus with unspecified complications - Discharge Dispostion Condition at time of disposition: Good Decision to Admit order: Yes - Referrals - Patient Instructions - Post Discharge Activity
[2018-07-13 12:35] VITALS: BMI 49.9
--- NOTE | 2018-07-13 12:56 | EKG ---
Test Reason : Blood Pressure : / mmHG Vent. Rate : 077 BPM Atrial Rate : 077 BPM P-R Int : 192 ms QRS Dur : 092 ms QT Int : 382 ms P-R-T Axes : 044 003 040 degrees QTc Int : 432 ms NORMAL SINUS RHYTHM MINIMAL VOLTAGE CRITERIA FOR LVH, MAY BE NORMAL VARIANT NONSPECIFIC T WAVE ABNORMALITY ABNORMAL ECG WHEN COMPARED WITH ECG OF 24-SEP-2017 13:42, NO SIGNIFICANT CHANGE WAS FOUND Confirmed by CAREY MIRANDA, GURU ([id number]) on 07/13/2018 12:55:54 PM Referred By: Confirmed By:GURU PATINO MD
--- NOTE | 2018-07-13 13:06 | PDOC ---
Attending Attestation - Resident Resident Name: Avery Moses - ED Attending Attestation I have performed the following: I have examined & evaluated the patient, The case was reviewed & discussed with the resident, I agree w/resident's findings & plan - HPI HPI: 07/13/18 13:10 Mitchell 52F w/ a history of CAD s/p stent x2, CHF, stroke (2010 w/ RU/LE weakness ), T2DM, BLE DVT (not on AC) who presents for evaluation several days of R knee pain s/p mechanical fall from standing as well as 1-2d of L breast/chest pain. She describes the chest pain as worse with sitting/leaning forward, worse w/ palpation, better w/ recumbency. Right knee pain s/p trip and fall while using her walker ~2 days ago, no LOC or head trauma. Since then she has had difficulty walking. also notes SIMMONS x "long time" with h/o CHF and CAD. no congestion. +mild cough. 07/13/18 15:57 07/13/18 15:57 - Physicial Exam PE: 07/13/18 15:56 NAD, well appearing, morbidly obese, PERRL, EOMI, MMM, nl conjunctiva, anicteric ; neck supple. lungs clear, RRR, abdomen soft nontender. LORA x4, no focal neuro deficits. +right knee pain, ROM limited 2/2 pain. no popliteal tenderness. No peripheral edema. normal color for ethnicity, WWP. - Medical Decision Making 07/13/18 15:56 See HPI for details Vital signs reviewed, wnl. Prior notes reviewed, including admissions, discharges and consultations. laboratory results and imaging reviewed, basic labs and lytes wnl neg trop CXR_pulm vascular congestion, large heart. similar to prior Cardiac panel_neg trop x1 bnp neg, doubt CHF/edema. EKG normal sinus rhythm at 77 bpm, no interval abnormalities, narrow QRS, ST and T wave segments and morphology normal. Nonspecific T wave abnormalities knee XRray_arthritic/degenerative changes, no fx duplex with chronic DVT in deep femoral vein, on left. ED course: uncomplicated. no acute events. pain control, lidoderm patch. defer AC to inpatient team admit tele obs for r/o ACS, tele monitor. given risk factors, comorbidities and sx. 07/13/18 18:17 07/13/18 18:18 07/16/18 20:39 Heart Score/ECG Review - ECG Impressions Normal ECG: Yes Comment:: 07/13/18 13:07 EKG normal sinus rhythm at 77 bpm, no interval abnormalities, narrow QRS, ST and T wave segments and morphology normal. Nonspecific T wave abnormalities
[2018-07-13] MEDS ORDERED: LIDOCAINE 5% TOPICAL PATCH TP ONE (13:23)
[2018-07-13] MEDS ORDERED: ACETAMINOPHEN 325 MG TABLET (FP) PO ONE (13:23)
[2018-07-13] MEDS ORDERED: MORPHINE SULFATE 2 MG/ML VIAL IVPUSH ONE (13:23)
[2018-07-13 13:39] LABS: BASO % 0.6 % (0-2.0); EOS % 1.7 % (0-4.5); HEMATOCRIT 39.9 % (32.4-45.2); HEMOGLOBIN 13.3 GM/dL (10.7-15.3); LYMPH % 24.6 % (8-40); MCH 28.3 pg (25.7-33.7); MCHC 33.3 g/dl (32.0-36.0); MEAN CELL VOLUME 85.2 fl (80-96); MEAN PLT VOLUME 7.9 fl (7.5-11.1); NEUT % 68.1 % (42.8-82.8); PLATELET COUNT 347 K/MM3 (134-434); RBC 4.68 M/mm3 (3.60-5.2); RDW 14.7 % (11.6-15.6); WHITE BLOOD COUNT 8.5 K/mm3 (4.0-10.0)
[2018-07-13] MEDS ORDERED: MORPHINE SULFATE 2 MG/ML VIAL ONE ×2 (13:43→17:33)
[2018-07-13] MEDS ORDERED: ACETAMINOPHEN 325 MG TABLET (FP) ONE (13:45)
[2018-07-13] MEDS ORDERED: LIDOCAINE 5% TOPICAL PATCH ONE (13:45)
[2018-07-13 14:20] LABS: ALBUMIN 3.6 g/dl (3.4-5.0); ALK PHOS 106 U/L (45-117); ANION GAP 5 MMOL/L (8-16); BILIRUBIN,TOTAL 0.9 mg/dL (0.2-1); BLOOD UREA NITROGEN 12 mg/dL (7-18); CALCIUM 8.9 mg/dL (8.5-10.1); CHLORIDE 101 mmol/L (98-107); CO2 34 mmol/L (21-32); CREATININE 0.7 mg/dL (0.55-1.3); GLUCOSE,RANDOM 112 mg/dL (74-106); POTASSIUM 3.7 mmol/L (3.5-5.1); SGOT/AST 11 U/L (15-37); SGPT/ALT 19 U/L (13-61); SODIUM 139 mmol/L (136-145); TOT PROT 7.5 g/dl (6.4-8.2)
[2018-07-13 16:41] LABS: N-TERMINAL BNP 15.3 pg/ml (5-125)
[2018-07-13] MEDS ORDERED: morphine CARPU-JECT 2 MG/1 ML DISP.SYRIN IVPUSH ONE (17:15)
[2018-07-13] MEDS ORDERED: ACETAMINOPHEN 325 MG TABLET (FP) PO PRN (20:34)
--- NOTE | 2018-07-13 20:36 | HP ---
Admitting History and Physical - Primary Care Physician PCP: Lucy Jennings - Admission History of Present Illness: Mitchell 52F w/ a history of CAD s/p stent x2, CHF, stroke (2010 w/ RU/LE weakness ), T2DM, BLE DVT (not on AC) who presents for evaluation several days of R knee pain s/p mechanical fall from standing as well as 1-2d of L breast/chest pain. She describes the chest pain as worse with sitting/leaning forward, worse w/ palpation, better w/ recumbency. Right knee pain s/p trip and fall while using her walker ~2 days ago, no LOC or head trauma. Since then she has had difficulty walking. also notes SIMMONS x "long time" with h/o CHF and CAD. no congestion. +mild cough. - Past Medical History Cardiovascular: Yes: CHF, HTN, Hyperlipdemia, Other (Dilated cardiomyopathy) - Past Surgical History Past Surgical History: Yes: Hysterectomy - Smoking History Smoking history: Never smoked Have you smoked in the past 12 months: No - Alcohol/Substance Use Hx Alcohol Use: No History of Substance Use: reports: Cocaine Home Medications - Allergies Allergies/Adverse Reactions: Allergies Allergy/AdvReac Type Severity Reaction Status Date / Time Penicillins Allergy Severe Itching, Verified 07/13/18 13:22 rash - Home Medications Home Medications: Ambulatory Orders Aspirin [ASA -] 81 mg PO DAILY 01/06/17 Lisinopril [Prinivil] 20 mg PO DAILY 01/06/17 Family Disease History - Family Disease History Family Disease History: CA: Father (HTN, prostate CA), Other: Father, Mother ( HTN) Physical Examination Vital Signs: Vital Signs Temperature 97.2 F L 07/13/18 18:00 Pulse Rate 84 07/13/18 18:00 Respiratory Rate 16 07/13/18 18:00 Blood Pressure 139/70 07/13/18 18:00 O2 Sat by Pulse Oximetry (%) 100 07/13/18 18:00 Constitutional: Yes: No Distress HENT: Yes: Atraumatic Neck: Yes: Supple Cardiovascular: Yes: Regular Rate and Rhythm Respiratory: Yes: CTA Bilaterally, Rhonchi Gastrointestinal: Yes: Normal Bowel Sounds Extremities: Yes: WNL Edema: No Peripheral Pulses WNL: Yes Neurological: Yes: Alert, Oriented Labs: CBC, BMP 07/13/18 13:15 07/13/18 13:15 Problem List - Problems (1) Chest pain Assessment/Plan: tele monitoring fu cardiac enzymes cardiology consult Code(s): R07.9 - CHEST PAIN, UNSPECIFIED Qualifiers: Chest pain type: unspecified Qualified Code(s): R07.9 - Chest pain, unspecified (2) Diabetes mellitus Assessment/Plan: monitor blood sugars Code(s): E11.9 - TYPE 2 DIABETES MELLITUS WITHOUT COMPLICATIONS Qualifiers: Diabetes mellitus type: other specified (including NANCY) Diabetes mellitus long term care pharmacist insulin use: unspecified long term care pharmacist insulin use status Diabetes mellitus complication status: with unspecified complications Qualified Code(s) : E13.8 - Other specified diabetes mellitus with unspecified complications (3) HTN (hypertension) Code(s): I10 - ESSENTIAL (PRIMARY) HYPERTENSION Qualifiers: Hypertension type: unspecified Qualified Code(s): I10 - Essential (primary ) hypertension (4) DVT (deep venous thrombosis) Assessment/Plan: h/o pt not on any blood thinner follow up hematology Code(s): I82.409 - ACUTE EMBOLISM AND THOMBOS UNSP DEEP VN UNSP LOWER EXTREMITY (5) Hypercholesterolemia Code(s): E78.00 - PURE HYPERCHOLESTEROLEMIA, UNSPECIFIED (6) Hyperglycemia Code(s): R73.9 - HYPERGLYCEMIA, UNSPECIFIED Assessment/Plan Laboratory Tests 07/13/18 07/13/18 07/13/18 13:15 13:15 15:18 WBC 8.5 RBC 4.68 Hgb 13.3 Hct 39.9 MCV 85.2 MCH 28.3 MCHC 33.3 RDW 14.7 Plt Count 347 MPV 7.9 Absolute Neuts (auto) 5.8 Neutrophils % 68.1 Lymphocytes % 24.6 Monocytes % 5.0 Eosinophils % 1.7 Basophils % 0.6 Nucleated RBC % 0 Sodium 139 Potassium 3.7 Chloride 101 Carbon Dioxide 34 H Anion Gap 5 L BUN 12 Creatinine 0.7 Creat Clearance w eGFR > 60 Random Glucose 112 H Calcium 8.9 Total Bilirubin 0.9 AST 11 L ALT 19 Alkaline Phosphatase 106 Creatine Kinase 122 Troponin I < 0.02 < 0.02 B-Natriuretic Peptide 15.3 Total Protein 7.5 Albumin 3.6 Active Medications Generic Name Dose Route Start Last Admin Trade Name Freq PRN Reason Stop Dose Admin Acetaminophen 650 mg 07/13/18 20:34 Tylenol - PO Q6H PRN FEVER Aspirin 81 mg 07/14/18 10:00 Asa - PO DAILY [facility] Heparin Sodium (Porcine) 5,000 unit 07/13/18 22:00 Heparin - SQ BID [facility] Lisinopril 20 mg 07/14/18 10:00 Prinivil PO DAILY [facility] Miscellaneous 1 each 07/13/18 22:00 Lidoderm Patch Removal MC DAILY@2200 [facility] Oxycodone HCl 10 mg 07/13/18 20:34 Roxicodone - PO Q6H PRN PAIN LEVEL 6-10
[2018-07-13] MEDS ORDERED: HEPARIN NA (PORCINE) 5,000 UNITS/ML 1ML VIAL SQ SCH (22:00)
[2018-07-13] MEDS ORDERED: ENOXAPARIN NA (PORCINE) 40 MG/0.4 ML DISP.SYRIN SQ SCH (22:00)
[2018-07-13] MEDS ORDERED: oxyCODONE HCL 5 MG TABLET ONE (22:25)
[2018-07-13] MEDS: oxyCODONE HCL 5 MG TABLET PO PRN (22:33)
[2018-07-14] MEDS ORDERED: ENOXAPARIN NA (PORCINE) 60 MG/0.6 ML DISP.SYRIN SQ ONE (03:15)
[2018-07-14] MEDS ORDERED: ENOXAPARIN NA (PORCINE) 80 MG/0.8 ML DISP.SYRIN SQ ONE (03:16)
[2018-07-14] MEDS: ENOXAPARIN 100 MG, ENOXAPARIN 40 MG SQ SCH ×4 (03:27→21:55)
[2018-07-14] MEDS ORDERED: oxyCODONE HCL 5 MG TABLET ONE ×3 (04:40→16:16)
[2018-07-14] MEDS: oxyCODONE HCL 5 MG TABLET PO PRN ×3 (04:44→16:14)
[2018-07-14 05:21] LABS: URINE APPEARANCE SLCLOUDY; URINE BILIRUBIN NEGATIVE (<2.0 mg/dL); URINE COLOR YELLOW; URINE GLUCOSE (UA) NEGATIVE (NEGATIVE); URINE KETONE NEGATIVE (NEGATIVE); URINE LEUK ESTERASE TRACE (NEGATIVE); URINE NITRITE NEGATIVE (NEGATIVE); URINE PROTEIN NEGATIVE (NEGATIVE)
[2018-07-14 05:40] LABS: EPI CELLS RARE /HPF (FEW); URINE BACTERIA RARE /hpf (NONE SEEN); URINE MUCUS RARE
--- NOTE | 2018-07-14 10:08 | CON.CARD ---
Consult Consult Specialty:: Cardiology Referred by:: Dr. Jennings Reason for Consultation:: Cardiac evaluation - History of Present Illness Chief Complaint: Chest pain and leg discomfort History of Present Illness: Patient is a 52 year old female with underlying history of CAD s/p PCI/stent (2 stents), CVA/stroke (2010 with right sided weakness), type 2 DM, HTN, hypercholesterolemia and history of DVT bilateral lower extremity who presents with right knee and RLE discomfort, tendency to fall and left sided sternal chest discomfort. She complains of pink conjunctiva right eye with blurring. Denies SOB and palpitations. Denies fever or chills. Denies nausea, vomiting, diarrhea or abdominal pain. Denies headache or lightheadedness. 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 Cardio/Vascular: Yes: CHF, HTN, Hyperlipdemia, Other (Dilated cardiomyopathy, DVT) - Past Surgical History Past Surgical History: Yes: Hysterectomy - Alcohol/Substance Use Hx Alcohol Use: No History of Substance Use: reports: Cocaine - Smoking History Smoking history: Never smoked Have you smoked in the past 12 months: No Home Medications - Allergies Allergies/Adverse Reactions: Allergies Allergy/AdvReac Type Severity Reaction Status Date / Time Penicillins Allergy Severe Itching, Verified 07/13/18 13:22 rash - Home Medications Home Medications: Ambulatory Orders Aspirin [ASA -] 81 mg PO DAILY 01/06/17 Lisinopril [Prinivil] 20 mg PO DAILY 01/06/17 Family Disease History - Family Disease History Family Disease History: CA: Father (HTN, prostate CA), Other: Father, Mother ( HTN) Review of Systems - Review of Systems Constitutional: denies: Chills, Fever Cardiovascular: reports: Chest Pain. denies: Palpitations, Shortness of Breath Respiratory: reports: Cough. denies: Hemoptysis, Orthopnea, PND, SOB, SOB on Exertion Gastrointestinal: denies: Abdominal Pain, Constipation, Diarrhea, Melena, Nausea , Rectal Bleeding, Vomiting Neurological: denies: Dizziness, Headache, Seizure, Syncope Vital Signs: Vital Signs Temperature 97.2 F L 07/13/18 18:00 Pulse Rate 89 07/14/18 06:39 Respiratory Rate 18 07/14/18 06:39 Blood Pressure 107/57 L 07/14/18 06:39 O2 Sat by Pulse Oximetry (%) 96 07/14/18 06:39 Eyes: Yes: PERRL HENT: Yes: Atraumatic Neck: Yes: Supple Respiratory: Yes: Diminished Gastrointestinal: Yes: Normal Bowel Sounds, Soft. No: Tenderness Cardiovascular: Yes: Regular Rate and Rhythm JVD: No Carotid Bruit: No PMI: Non-Displaced Heart Sounds: Yes: S1, S2 Murmur: Yes: Systolic Murmur, Grade 1 Edema: No - Other Data Labs, Other Data: CBC, BMP 07/13/18 13:15 07/13/18 13:15 Troponin, BNP 07/13/18 07/13/18 07/14/18 13:15 15:18 03:20 Troponin I < 0.02 < 0.02 < 0.02 B-Natriuretic Peptide 15.3 NSR, nonspecific T abnormality Problem List - Problems (1) Chest pain Code(s): R07.9 - CHEST PAIN, UNSPECIFIED Qualifiers: Chest pain type: unspecified Qualified Code(s): R07.9 - Chest pain, unspecified (2) Diabetes mellitus Code(s): E11.9 - TYPE 2 DIABETES MELLITUS WITHOUT COMPLICATIONS Qualifiers: Diabetes mellitus type: other specified (including NANCY) Diabetes mellitus terminal operator insulin use: unspecified skilled nursing insulin use status Diabetes mellitus complication status: with unspecified complications Qualified Code(s) : E13.8 - Other specified diabetes mellitus with unspecified complications (3) HTN (hypertension) Code(s): I10 - ESSENTIAL (PRIMARY) HYPERTENSION Qualifiers: Hypertension type: unspecified Qualified Code(s): I10 - Essential (primary ) hypertension (4) DVT (deep venous thrombosis) Code(s): I82.409 - ACUTE EMBOLISM AND THOMBOS UNSP DEEP VN UNSP LOWER EXTREMITY (5) Hypercholesterolemia Code(s): E78.00 - PURE HYPERCHOLESTEROLEMIA, UNSPECIFIED (6) Nonischemic dilated cardiomyopathy Code(s): I42.9 - CARDIOMYOPATHY, UNSPECIFIED Assessment/Plan 1. CAD, s/p PCI/stent, angina pectoris 2. History of CVA with right sided weakness 3. HTN 4. Hypercholesterolemia 5. History of DVT PLAN: 1. Continue ASA 2. Continue Lisinopril 3. Lovenox given 4. Fasting lipid panel and lipid lowering therapy to keep LDL below 70 5. Echocardiography to assess LV/RV and valvular function 6. LE Doppler to assess for DVT 7. Cardiac enzymes are negative. Further cardiac work up to follow Further plans are to follow Gustavo Lino MD
[2018-07-14] MEDS: ASPIRIN 81 MG CHEWABLE TABLETS PO SCH (10:34)
[2018-07-14] MEDS: LISINOPRIL 20 MG TABLET (FP) PO SCH (10:34)
[2018-07-14] MEDS: LIDOCAINE PATCH REMOVAL MC SCH ×2 (10:41→21:54)
--- NOTE | 2018-07-14 13:44 | CONSULT ---
Consult Consult Specialty:: Hemonc Referred by:: Dr. Jennings Reason for Consultation:: DVT - History of Present Illness Chief Complaint: R Knee pain and chest pain History of Present Illness: 52 yo AA female h/o CAD s/p stent x2, CHF, CVA w/ RU/LE weakness, DM, BLE DVT not on AC p/w chest pain and R knee pain x 2 days. Patient recalls that she's diagnosed with b/l DVT in 2014 at [facility]. She was started on coumadin then discontinued in 2017 by her physician possibly because no DVT was identified in 2017. However, she's found to have L femoral dvt in 08/2017 at [facility] and she's taking xarelto at that time. The L femoral dvt p/w partial chronic thromobosis w/ recanulation. Per patient she hasn't been taking any AC in the last 2 years, only asa after the stroke. Denies travel, bedridden, genetic coagulation disorder, shortness of breath, fever, chills. 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 Cardio/Vascular: Yes: CHF, HTN, Hyperlipdemia, Other (Dilated cardiomyopathy, DVT) - Past Surgical History Past Surgical History: Yes: Hysterectomy - Alcohol/Substance Use Hx Alcohol Use: No History of Substance Use: reports: Cocaine - Smoking History Smoking history: Never smoked Have you smoked in the past 12 months: No Home Medications - Allergies Allergies/Adverse Reactions: Allergies Allergy/AdvReac Type Severity Reaction Status Date / Time Penicillins Allergy Severe Itching, Verified 07/13/18 13:22 rash - Home Medications Home Medications: Ambulatory Orders Aspirin [ASA -] 81 mg PO DAILY 01/06/17 Lisinopril [Prinivil] 20 mg PO DAILY 01/06/17 Family Disease History - Family Disease History Family Disease History: CA: Father (HTN, prostate CA), Other: Father, Mother ( HTN) Review of Systems - Review of Systems Constitutional: denies: Chills, Fever, Lethargy, Unintentional Wgt. Loss Eyes: reports: Other (b/l eye discharge) Cardiovascular: reports: Chest Pain. denies: Palpitations, Shortness of Breath Respiratory: denies: Cough Gastrointestinal: denies: Abdominal Pain Genitourinary: reports: No Symptoms Breasts: reports: Pain Physical Exam Vital Signs: Vital Signs Temperature 97.2 F L 07/13/18 18:00 Pulse Rate 89 07/14/18 06:39 Respiratory Rate 18 07/14/18 06:39 Blood Pressure 107/57 L 07/14/18 06:39 O2 Sat by Pulse Oximetry (%) 96 07/14/18 06:39 Constitutional: Yes: No Distress Eyes: Yes: Conjunctiva Clear HENT: Yes: Atraumatic, Normocephalic Cardiovascular: Yes: Regular Rate and Rhythm, Murmur, S1, S2 Respiratory: Yes: CTA Bilaterally Gastrointestinal: Yes: Normal Bowel Sounds, Soft, Abdomen, Obese. No: Tenderness Edema: No Peripheral Pulses WNL: Yes Neurological: Yes: Alert, Oriented Psychiatric: Yes: Alert, Oriented Labs: CBC, BMP 07/13/18 13:15 07/13/18 13:15 Imaging - Results Other: Report Reviewed Assessment/Plan 52 yo AA female h/o CAD s/p stent x2, CHF, CVA w/ RU/LE weakness, DM, BLE DVT not on AC p/w chest pain and R knee pain x 2 days now being evaluated for L femoral DVT. 1. L femoral DVT - Well's score for DVT = 1, moderate risk considering location of thrombus and comorbidities - lovenox 140mg BID + AC of patient's choice - outpatient hypercoagubility workup Maximino Briceno PGY3 Visit type - Emergency Visit Emergency Visit: Yes ED Registration Date: 07/13/18 Care time: The patient presented to the Emergency Department on the above date and was hospitalized for further evaluation of their emergent condition. - New Patient This patient is new to me today: Yes Date on this admission: 07/14/18 - Critical Care Critical Care patient: No
[2018-07-14 15:37] LABS: INR 1.1 (0.83-1.09)
--- NOTE | 2018-07-14 15:38 | PN ---
Progress Note, Physician History of Present Illness: c/o pain ,itching and discharge R eye - Current Medication List Current Medications: Active Medications Acetaminophen (Tylenol -) 650 mg PO Q6H PRN PRN Reason: FEVER Aspirin (Asa -) 81 mg PO DAILY [facility] Last Admin: 07/14/18 10:34 Dose: 81 mg Enoxaparin Sodium 100 mg/ (Enoxaparin Sodium 40 mg) 140 mg SQ BID [facility] Last Admin: 07/14/18 12:27 Dose: Not Given Lisinopril (Prinivil) 20 mg PO DAILY [facility] Last Admin: 07/14/18 10:34 Dose: 20 mg Miscellaneous (Lidoderm Patch Removal) 1 each MC DAILY@2200 [facility] Last Admin: 07/14/18 10:41 Dose: 1 each Oxycodone HCl (Roxicodone -) 10 mg PO Q6H PRN PRN Reason: PAIN LEVEL 6-10 Last Admin: 07/14/18 10:52 Dose: 10 mg - Objective Vital Signs: Vital Signs Temperature 97.2 F L 07/13/18 18:00 Pulse Rate 89 07/14/18 06:39 Respiratory Rate 18 07/14/18 06:39 Blood Pressure 107/57 L 07/14/18 06:39 O2 Sat by Pulse Oximetry (%) 96 07/14/18 06:39 Constitutional: Yes: No Distress Eyes: Yes: Other (both eyes red...R more than left) HENT: Yes: Atraumatic, Other (b) Neck: Yes: Supple Cardiovascular: Yes: Regular Rate and Rhythm Respiratory: Yes: CTA Bilaterally Gastrointestinal: Yes: Normal Bowel Sounds Extremities: Yes: WNL Edema: Yes Edema: LLE: Trace, RLE: Trace Neurological: Yes: Alert, Oriented Labs: CBC, BMP 07/13/18 13:15 07/13/18 13:15 Problem List - Problems (1) Chest pain Assessment/Plan: tele monitoring fu cardiac enzymes cardiology consult Code(s): R07.9 - CHEST PAIN, UNSPECIFIED Qualifiers: Chest pain type: unspecified Qualified Code(s): R07.9 - Chest pain, unspecified (2) Diabetes mellitus Assessment/Plan: monitor blood sugars Code(s): E11.9 - TYPE 2 DIABETES MELLITUS WITHOUT COMPLICATIONS Qualifiers: Diabetes mellitus type: other specified (including NANCY) Diabetes mellitus long line teamster insulin use: unspecified long line teamster insulin use status Diabetes mellitus complication status: with unspecified complications Qualified Code(s) : E13.8 - Other specified diabetes mellitus with unspecified complications (3) HTN (hypertension) Code(s): I10 - ESSENTIAL (PRIMARY) HYPERTENSION Qualifiers: Hypertension type: essential hypertension Qualified Code(s): I10 - Essential (primary) hypertension (4) DVT (deep venous thrombosis) Assessment/Plan: on lovenox now for L femoral dvt follow up hematology Code(s): I82.409 - ACUTE EMBOLISM AND THOMBOS UNSP DEEP VN UNSP LOWER EXTREMITY Qualifiers: DVT location: lower extremity Affected thrombotic vein of extremity: femoral Chronicity: chronic Laterality: left Qualified Code(s): I82.512 - Chronic embolism and thrombosis of left femoral vein (5) Hypercholesterolemia Code(s): E78.00 - PURE HYPERCHOLESTEROLEMIA, UNSPECIFIED (6) Hyperglycemia Code(s): R73.9 - HYPERGLYCEMIA, UNSPECIFIED (7) Conjunctivitis Assessment/Plan: eye abx ointment Code(s): H10.9 - UNSPECIFIED CONJUNCTIVITIS
[2018-07-14 15:40] LABS: ACTIVATED PTT 35.5 SECONDS (25.2-36.5)
--- NOTE | 2018-07-14 15:49 | ECHO ---
Name: SARA GUTIERREZ Exam:Adult Echocardiogram Study Date: 07/14/2018 01:52 PM Age: 52 yrs Reason For Study: chest pain, DM,HTN,CVA,DVT MMode/2D Measurements & Calculations IVSd: 1.1 cm Ao root diam: 3.4 cm LVIDd: 6.4 cm LA dimension: 3.2 cm LVIDs: 4.4 cm ACS: 1.9 cm LVPWd: 0.89 cm IVSs: 1.3 cm LVPWs: 1.3 cm EDV(Teich): 206.1 ml ESV(Teich): 88.7 ml EPSS: 1.2 cm Doppler Measurements & Calculations MV E max vinicius: 61.2 cm/sec Ao V2 max: 134.8 cm/sec MV A max vinicius: 68.1 cm/sec Ao max P.3 mmHg MV E/A: 0.90 Ao V2 mean: 104.6 cm/sec Ao mean P.7 mmHg Ao V2 VTI: 23.6 cm MR max vinicius: 476.9 cm/sec TR max vinicius: 220.8 cm/sec MR max P.0 mmHg TR max P.5 mmHg RVSP(TR): 24.5 mmHg Med Peak E' Vinicius: 4.4 cm/sec RAP systole: 5.0 mmHg Med E/e': 14.0 Lat Peak E' Vinicius: 7.6 cm/sec Lat E/e': 8.1 Left Ventricle Normal LV size with low normal LV function. Ejection Fraction = 54%. Abnormal diastolic complaince wi th normal LA pressure. Right Ventricle Normlal RV size and function. Atria Normal left and right atrial size and function. Mitral Valve The mitral valve is normal. There is mild mitral regurgitation. Tricuspid Valve The tricuspid valve is normal. There is mild tricuspid regurgitation. Aortic Valve The aortic valve is normal in structure and function. Pulmonic Valve The pulmonic valve leaflets are thin and pliable; valve motion is normal. Great Vessels The aortic root is normal size. Interpretation Summary Normal LV size with low normal LV function. Ejection Fraction = 54%. Abnormal diastolic complaince with normal LA pressure. Normlal RV size and function. Normal left and right atrial size and function. The mitral valve is normal. There is mild mitral regurgitation. The tricuspid valve is normal. There is mild tricuspid regurgitation. The aortic valve is normal in structure and function. The aortic root is normal size. MD Herrera Ibanez 07/14/2018 03:49 PM
[2018-07-14] MEDS: ERYTHROMYCIN 0.5% OPHTHALMIC OINTMENT 3.5 GM TUBE OU SCH (20:40)
[2018-07-14] MEDS ORDERED: ENOXAPARIN NA (PORCINE) 40 MG/0.4 ML DISP.SYRIN SQ ONE (20:52)
[2018-07-14] MEDS ORDERED: ENOXAPARIN NA (PORCINE) 100 MG/1 ML DISP.SYRIN SQ ONE (20:53)
[2018-07-14] MEDS: MORPHINE SULFATE 2 MG/ML VIAL IVPUSH PRN (21:51)
[2018-07-15] MEDS: MORPHINE SULFATE 2 MG/ML VIAL IVPUSH PRN ×3 (05:38→16:37)
--- NOTE | 2018-07-15 07:55 | PN ---
Teaching Attending Note Name of Resident: Maximino Briceno ATTENDING PHYSICIAN STATEMENT I saw and evaluated the patient. I reviewed the resident's note and discussed the case with the resident. I agree with the resident's findings and plan as documented. SUBJECTIVE: Patient seen and examined History of unprovoked DVT bilaterally in LE's in 2014 followed by coumadin and then xarelto. Discontinued in 2018. Presents now with chest pain and RLE pains. Found to have chronic thrombosis of LLE unchanged from 08/2017. (partial cannulation with flow around thrombus) H/O CAD s/p stent x2, CHF, CVA w/ RU/LE weakness, DM, chest pain and R knee pain x 2 days now being evaluated for L femoral DVT. OBJECTIVE: Last Vital Signs Temp Pulse Resp BP Pulse Ox 98.8 F 82 20 130/66 98 07/15/18 05:00 07/15/18 05:00 07/15/18 05:00 07/15/18 05:00 07/15/18 04:00 HEENT: SAM[place]ON, EOM Intact Oropharynx: No thrush, No mucositis Neck: Supple Nodes: Without adenopathy Breasts: Without masses Cor: RSR, No murmurs, No gallops Lungs: Clear to P&A Abd: Soft, Normal bowel sounds, No organomegaly Ext:No significant edema Skin: No rashes, Integument intact CBC, BMP 07/13/18 13:15 07/13/18 13:15 Current Medications Generic Name Dose Route Start Last Admin Trade Name Freq PRN Reason Stop Dose Admin Acetaminophen 650 mg 07/13/18 20:34 Tylenol - PO Q6H PRN FEVER Aspirin 81 mg 07/14/18 10:00 07/14/18 10:34 Asa - PO 81 mg DAILY LIOR Administration Enoxaparin Sodium 100 mg/ 140 mg 07/13/18 22:00 07/14/18 21:55 Enoxaparin Sodium 40 mg SQ 140 mg BID LIOR Administration Erythromycin 1 applic 07/14/18 19:30 07/14/18 20:40 Erythromycin 0.5% Eye Ointment OU 1 applic DAILY LIOR Administration Lisinopril 20 mg 07/14/18 10:00 07/14/18 10:34 Prinivil PO 20 mg DAILY LIOR Administration Miscellaneous 1 each 07/13/18 22:00 07/14/18 21:54 Lidoderm Patch Removal MC 1 each DAILY@2200 LIOR Administration Morphine Sulfate 2 mg 07/14/18 19:20 07/15/18 05:38 Morphine Sulfate IVPUSH 2 mg Q4H PRN Administration PAIN LEVEL 4 - 6 52 year old with multiple co-morbid medical problems and history of unprovoked bilateral LE DVT in 2014 with 2 years of coumadin and less than one year of xarelto. A/C discontinued in 2018. Found to have chronic LLE deep femoral vein thrombosis ( partially cannulized thrombosis unchanged from 2018.) Would consider age related malignancy work up-- ( never had mammogram, COFFEE WEIGHER evaluation last done greater than 8 yeas earlier) Would continue lovenox and bridge to either NOAC or coumadin view of proximal position of thrombosis and hx of unprovoked DVT. Would consider outpatient thrombophilia work up. ASSESSMENT AND PLAN:
[2018-07-15] MEDS ORDERED: ENOXAPARIN NA (PORCINE) 100 MG/1 ML DISP.SYRIN SQ ONE (09:27)
[2018-07-15] MEDS ORDERED: ENOXAPARIN NA (PORCINE) 40 MG/0.4 ML DISP.SYRIN SQ ONE (09:27)
--- NOTE | 2018-07-15 09:34 | PN ---
Progress Note, Physician History of Present Illness: No further chest pain, dyspnea, LE swelling. - Current Medication List Current Medications: Active Medications Acetaminophen (Tylenol -) 650 mg PO Q6H PRN PRN Reason: FEVER Aspirin (Asa -) 81 mg PO DAILY [facility] Last Admin: 07/14/18 10:34 Dose: 81 mg Enoxaparin Sodium 100 mg/ (Enoxaparin Sodium 40 mg) 140 mg SQ BID [facility] Last Admin: 07/14/18 21:55 Dose: 140 mg Erythromycin (Erythromycin 0.5% Eye Ointment) 1 applic OU DAILY [facility] Last Admin: 07/14/18 20:40 Dose: 1 applic Lisinopril (Prinivil) 20 mg PO DAILY [facility] Last Admin: 07/14/18 10:34 Dose: 20 mg Miscellaneous (Lidoderm Patch Removal) 1 each MC DAILY@2200 [facility] Last Admin: 07/14/18 21:54 Dose: 1 each Morphine Sulfate (Morphine Sulfate) 2 mg IVPUSH Q4H PRN PRN Reason: PAIN LEVEL 4 - 6 Last Admin: 07/15/18 05:38 Dose: 2 mg - Objective Vital Signs: Vital Signs Temperature 98.7 F 07/15/18 08:55 Pulse Rate 78 07/15/18 08:55 Respiratory Rate 20 07/15/18 08:57 Blood Pressure 118/68 07/15/18 08:55 O2 Sat by Pulse Oximetry (%) 98 07/15/18 08:57 Constitutional: Yes: No Distress, Calm Neck: Yes: Supple Cardiovascular: Yes: Regular Rate and Rhythm Respiratory: Yes: Regular, Diminished Gastrointestinal: Yes: Normal Bowel Sounds, Soft, Abdomen, Obese Edema: Yes Edema: LLE: Trace, RLE: Trace Labs: CBC, BMP 07/13/18 13:15 07/13/18 13:15 INR, PTT INR 1.10 (0.83-1.09) H 07/14/18 15:10 - ....Imaging EKG: Report Reviewed (Tele: NSR) Problem List - Problems (1) Chest pain Code(s): R07.9 - CHEST PAIN, UNSPECIFIED Qualifiers: Chest pain type: unspecified Qualified Code(s): R07.9 - Chest pain, unspecified (2) Diabetes mellitus Code(s): E11.9 - TYPE 2 DIABETES MELLITUS WITHOUT COMPLICATIONS Qualifiers: Diabetes mellitus type: other specified (including NANCY) Diabetes mellitus terminal carman insulin use: unspecified terminal carman insulin use status Diabetes mellitus complication status: with unspecified complications Qualified Code(s) : E13.8 - Other specified diabetes mellitus with unspecified complications (3) HTN (hypertension) Code(s): I10 - ESSENTIAL (PRIMARY) HYPERTENSION Qualifiers: Hypertension type: essential hypertension Qualified Code(s): I10 - Essential (primary) hypertension (4) DVT (deep venous thrombosis) Code(s): I82.409 - ACUTE EMBOLISM AND THOMBOS UNSP DEEP VN UNSP LOWER EXTREMITY Qualifiers: DVT location: lower extremity Affected thrombotic vein of extremity: femoral Chronicity: chronic Laterality: left Qualified Code(s): I82.512 - Chronic embolism and thrombosis of left femoral vein (5) Hypercholesterolemia Code(s): E78.00 - PURE HYPERCHOLESTEROLEMIA, UNSPECIFIED (6) History of coronary artery stent placement Code(s): Z95.5 - PRESENCE OF CORONARY ANGIOPLASTY IMPLANT AND GRAFT Assessment/Plan 07/13/2018 Vasc US: Partial or chronic thrombosis with recanalization of left femoral DVT 07/13/2018 Echo: Normal LV size with low normal LV EF 54%, abnl LV compliance with normal LA pressures, normal RV size and fxn, normal atrial sizes, mild MR, TR 1. CAD, s/p PCI/stent, angina pectoris 2. History of CVA with right sided weakness 3. HTN 4. Hypercholesterolemia 5. History of unprovoked DVT PLAN: 1. Continue ASA 81 qd 2. Continue Lisinopril 20 qd 3. Lovenox->Xarelto 10 qd to prevent recurrence (previously taking) 4. Fasting lipid panel and lipid lowering therapy to keep LDL below 70 5. Age related malignancy work up-- ( never had mammogram, QUESTIONED DOCUMENTS EXAMINER evaluation last done greater than 8 yeas earlier) 6. Would consider outpatient thrombophilia work up, d/c planning.
[2018-07-15] MEDS: ASPIRIN 81 MG CHEWABLE TABLETS PO SCH (10:00)
[2018-07-15] MEDS ORDERED: RIVAROXABAN 10 MG TABLET PO SCH (10:00)
[2018-07-15] MEDS: LISINOPRIL 20 MG TABLET (FP) PO SCH (10:00)
[2018-07-15] MEDS: ERYTHROMYCIN 0.5% OPHTHALMIC OINTMENT 3.5 GM TUBE OU SCH (10:01)
--- NOTE | 2018-07-15 14:19 | DS ---
Physical Examination Vital Signs: Vital Signs Temperature 98.7 F 07/15/18 08:55 Pulse Rate 78 07/15/18 08:55 Respiratory Rate 20 07/15/18 08:57 Blood Pressure 118/68 07/15/18 08:55 O2 Sat by Pulse Oximetry (%) 98 07/15/18 08:57 Constitutional: Yes: No Distress HENT: Yes: Atraumatic Neck: Yes: Supple Cardiovascular: Yes: Regular Rate and Rhythm Respiratory: Yes: CTA Bilaterally Gastrointestinal: Yes: Normal Bowel Sounds Extremities: Yes: WNL Edema: No Peripheral Pulses WNL: Yes Neurological: Yes: Alert, Oriented Labs: CBC, BMP 07/13/18 13:15 07/13/18 13:15 Discharge Summary Reason For Visit: DIAB/DVT/CP/HTN Current Active Problems Chest pain (Acute) Conjunctivitis (Acute) Diabetes mellitus (Acute) HTN (hypertension) (Acute) History of coronary artery stent placement (Acute) Condition: Good - Instructions Diet, Activity, Other Instructions: Please keep Right lower extremity elevated while seated. If there is an acute pain in any of your extremity please call EMS For chronic pain management please call your primary care physician. Referrals: Colten Floyd [Primary Care Provider] - Zia Cole MD [Staff Physician] - - Home Medications Comprehensive Discharge Medication List: Ambulatory Orders Aspirin [ASA -] 81 mg PO DAILY 01/06/17 Lisinopril [Prinivil] 20 mg PO DAILY 01/06/17 Erythromycin 0.5% Eye Ointment [Erythromycin 0.5% Eye Ointment -] 1 applic OU DAILY #1 tube 07/15/18 Rivaroxaban [Xarelto -] 10 mg PO DAILY #7 tablet 07/15/18 [facility] hematology as out patient
[2018-07-15 15:50] VITALS: TEMP 98
[2018-07-15 17:07] VITALS: BP 114/56; PULSE 72
== END 2018-07-15 18:17 | disposition home health service (06) ==
LOC: JER 12:09 → INTOOBSV 15:13 → JERBED 15:13 → J4W 07-14 17:30
PROVIDERS: ADMIT Internal Medicine; ATTEND Internal Medicine
PROC: 3E013GC Introduction of Other Therapeutic Substance into Subcutaneous Tissue, Percutaneous Approach (ICD-10-PCS; principal; 2018-07-13)
DX: R07.9 Chest pain, unspecified (principal); I11.0 Hypertensive heart disease with heart failure; I25.10 Atherosclerotic heart disease of native coronary artery without angina pectoris; I50.9 Heart failure, unspecified; I42.9 Cardiomyopathy, unspecified; E11.65 Type 2 diabetes mellitus with hyperglycemia; E13.8 Other specified diabetes mellitus with unspecified complications; I69.344 Monoplegia of lower limb following cerebral infarction affecting left non-dominant side; I69.331 Monoplegia of upper limb following cerebral infarction affecting right dominant side; I82.412 Acute embolism and thrombosis of left femoral vein; Z79.84 Long term (current) use of oral hypoglycemic drugs; E78.00 Pure hypercholesterolemia, unspecified; M25.561 Pain in right knee; H10.9 Unspecified conjunctivitis; Z88.0 Allergy status to penicillin; Z95.5 Presence of coronary angioplasty implant and graft
CPT/HCPCS: 36415; 71045-TC-FY; 73562-TC-RT-FY; 80053; 81003; 81015; 82550; 82962; 83880; 84484; 85025; 85610; 85730; 93005; 93010; 93306-TC; 93970-TC; 99285-25; G0378